=== PATIENT | male | born 1965 | race Caucasian/White ===

== ENCOUNTER 2020-01-20 10:07 | Outpatient (RCR) | payer OTHER | END 2020-04-19 | disposition home or self-care (01) | LOC: WSOH | DX: K42.9 Umbilical hernia without obstruction or gangrene (principal); K40.91 Unilateral inguinal hernia, without obstruction or gangrene, recurrent; Z98.890 Other specified postprocedural states; Y99.0 Civilian activity done for income or pay ==

== ENCOUNTER 2020-03-20 06:40 | Day surgery (SDC) | payer OTHER ==
[~2020-03-20] VITALS: Ht 170.2 cm; Wt 66.7 kg
[2020-03-20 07:16] VITALS: BP 127/70; PULSE 65; TEMP 97.4
--- NOTE | 2020-03-20 07:27 | NUR ---
TO RM 7 AT 0646- CALL LIGHT IN REACH FRIEND BARBER WILL TAKE PATIENT HOME
[2020-03-20 10:10] VITALS: BP 113/74; PULSE 76; TEMP 97.2
--- NOTE | 2020-03-20 10:10 | NUR ---
TO RM 7 PER CART FROM PACU. ALERT ORIENTED X3, TALKING TO STAFF. INCISIONS COVERED WITH DRAPER SET. NO DRAINAGE OR REDNESS AT SITES. DENIES PAIN OR DISCOMFORT. DENIES N/V.
[2020-03-20 10:25] VITALS: BP 106/81; PULSE 73
--- NOTE | 2020-03-20 10:25 | NUR ---
SAT UP TO DRINK WATER. TOLERATED WELL. GRIMACED UPON SITTING UP, BUT DENIES NEED FOR PAIN MEDICATION.
[2020-03-20 10:40] VITALS: BP 114/80; PULSE 65
--- NOTE | 2020-03-20 10:40 | NUR ---
RECEIVED MICHELLE PUDDING. SITTING UP AND TOLERATING WELL.
[2020-03-20 10:55] VITALS: BP 111/68; PULSE 66
--- NOTE | 2020-03-20 10:55 | NUR ---
ATE 100% PUDDING AND TOLERATED WELL. AMBULATED TO BATHROOM. VOIDED AND AMBULATED BACK TO . UPON RETURNING PATIENT HAD GRIMACE ON FACE, BUT AGAIN REFUSED ANY PAIN MEDICATION.
--- NOTE | 2020-03-20 11:05 | NUR ---
RECEIVED DISCHARGE INSTRUCTIONS AND VERBALIZED UNDERSTANDING. DISCONTINUED IV AND INT- CATHETER INTACT
--- NOTE | 2020-03-20 11:15 | NUR ---
DISCHARGED PER WC BY NURSING STAFF TO PRIVATE CAR IN CARE OF FRIEND BARBERRain
== END 2020-03-20 11:30 | disposition home or self-care (01) ==
LOC: SDCO 06:40
DX: K40.91 Unilateral inguinal hernia, without obstruction or gangrene, recurrent (principal); K42.0 Umbilical hernia with obstruction, without gangrene; J30.2 Other seasonal allergic rhinitis; Z11.59 Encounter for screening for other viral diseases
CPT/HCPCS: C1781; J0330; J0690; J1100; J1885; J2405; J2704; J3010; J7120